=== PATIENT | female | born 1980 | race Caucasian/White ===

== ENCOUNTER 2017-07-13 00:40 | Outpatient (CLI) | payer OTHER ==
[2017-07-13] MEDS ORDERED: ACETAMINOPHEN 500 MG TAB PO (01:23)
[2017-07-13 01:41] LABS: ADD UMIC YES; UR AMORPHOUS CRYSTAL FEW /HPF (NONE SEEN); UR ASCORBIC ACID NEGATIVE (NEGATIVE); UR BACTERIA FEW /HPF (NONE SEEN); UR BILIRUBIN (Dip) NEGATIVE (NEGATIVE); UR BLOOD (Dip) 2+ mg/dL (NEGATIVE); UR CLARITY CLOUDY (CLEAR); UR COLOR YELLOW (YELLOW); UR GLUCOSE (Dip) NEGATIVE (NEGATIVE); UR KETONES (Dip) NEGATIVE (NEGATIVE); UR LEUKOCYTE ESTERASE (Dip) 2+ Leu/ul (NEGATIVE); UR NITRITE (Dip) NEGATIVE (NEGATIVE); UR RBC 4 /HPF (0-5); UR SPECIFIC GRAVITY (Dip) 1.006 (1.003-1.030); UR SQUAMOUS EPITHELIAL CELL MODERATE /HPF (FEW); UR TOTAL PROTEIN (Dip) NEGATIVE (NEGATIVE); UR UROBILINOGEN (Dip) NEGATIVE (NEGATIVE); UR WBC 8 /HPF (0-5)
[2017-07-13 02:17] LABS: ADD MAN DIFF? NO
[2017-07-13 02:27] LABS: WHITE BLOOD COUNT 14.1 10^3/ul (4.8-10.8)
[2017-07-13 02:27] LABS: BASOPHILS % 0.2 % (0.0-2.0); EOSINOPHILS # 0.2 10^3/ul (0.0-0.5); EOSINOPHILS % 1.6 % (0.0-7.0); HEMATOCRIT 33.3 % (37.0-47.0); HEMOGLOBIN 11.2 g/dl (12.0-16.0); LYMPHOCYTES # 2.3 10^3/ul (0.8-2.9); LYMPHOCYTES % 16.6 % (15.0-51.0); MEAN CORPUSCULAR HEMOGLOBIN 28.7 pg (29.0-33.0); MEAN CORPUSCULAR HGB CONC 33.6 g/dl (32.0-37.0); MEAN CORPUSCULAR VOLUME 85.4 fl (82.0-101.0); MEAN PLATELET VOLUME 9.3 fl (7.4-10.4); MONOCYTE # 1.3 10^3/ul (0.3-0.9); MONOCYTES % 9.1 % (0.0-11.0); NEUTROPHIL # 10.1 10^3/ul (1.6-7.5); NEUTROPHILS % 71.6 % (39.0-77.0); PLATELET COUNT 247 10^3/UL (140-415); RED CELL DISTRIBUTION WIDTH 15.4 % (11.5-14.5)
[2017-07-13 02:47] LABS: ALANINE AMINOTRANSFERASE 28 IU/L (13-69); ALBUMIN 3.3 g/dl (3.3-4.9); ALBUMIN/GLOBULIN RATIO 1.13; ALKALINE PHOSPHATASE 92 IU/L (42-121); ANION GAP 13 (8-16); ASPARTATE AMINO TRANSFERASE 14 IU/L (15-46); BILIRUBIN,INDIRECT 0.1 mg/dl (0-1.1); BILIRUBIN,TOTAL 0.1 mg/dl (0.2-1.3); BLOOD UREA NITROGEN 8 mg/dl (7-20); CALCIUM 9.3 mg/dl (8.4-10.2); CARBON DIOXIDE 24 mmol/L (21-31); CHLORIDE 107 mmol/L (97-110); CREATININE 0.64 mg/dl (0.44-1.00); GLUCOSE 92 mg/dl (70-220); POTASSIUM 3.7 mmol/L (3.5-5.1); SODIUM 140 mmol/L (135-144); TOTAL PROTEIN 6.2 g/dl (6.1-8.1); URIC ACID 4.2 mg/dl (3.1-7.9)
== END 2017-07-13 03:05 | disposition home or self-care (01) ==
LOC: OBT 00:40 → L-D 00:41 → OBT 03:05
DX: O26.893 Other specified pregnancy related conditions, third trimester (principal); Z3A.37 37 weeks gestation of pregnancy; R51 Headache
CPT/HCPCS: 76818; 80053; 81001; 84560; 85025; 96372

== ENCOUNTER 2017-08-01 05:18 | Inpatient (IN) | payer OTHER ==
[2017-08-01] MEDS ORDERED: IBUPROFEN 600 MG TAB PO (06:00)
[2017-08-01] MEDS ORDERED: BUTORPHANOL 2 MG INJ IV (06:00)
[2017-08-01] MEDS ORDERED: CARBOPROST 250 MCG INJ IM (06:00)
[2017-08-01] MEDS ORDERED: OXYTOCIN 30 UNITS/LR 500 ML IV (06:00)
[2017-08-01] MEDS: MINERAL OIL LIGHT 10 ML VIAL TOP (06:00)
[2017-08-01] MEDS ORDERED: LACTATED RINGER'S 1,000 ML IV (06:00)
[2017-08-01] MEDS ORDERED: MISOPROSTOL 200 MCG TAB PR (06:00)
[2017-08-01] MEDS ORDERED: LIDOCAINE 1% (MPF) 30 ML INJ INJ (06:00)
[2017-08-01] MEDS ORDERED: METHYLERGONOVINE 0.2 MG INJ IM (06:00)
[2017-08-01] MEDS: LACTATED RINGER'S 1,000 ML IV ×3 (08:29→17:44)
[2017-08-01 08:37] LABS: ADD MAN DIFF? NO
[2017-08-01 08:41] LABS: BASOPHILS % 0.4 % (0.0-2.0); EOSINOPHILS # 0.1 10^3/ul (0.0-0.5); EOSINOPHILS % 1.2 % (0.0-7.0); HEMATOCRIT 34.1 % (37.0-47.0); HEMOGLOBIN 11.7 g/dl (12.0-16.0); LYMPHOCYTES # 1.8 10^3/ul (0.8-2.9); LYMPHOCYTES % 16.3 % (15.0-51.0); MEAN CORPUSCULAR HGB CONC 34.3 g/dl (32.0-37.0); MEAN CORPUSCULAR VOLUME 84.4 fl (82.0-101.0); MEAN PLATELET VOLUME 9.5 fl (7.4-10.4); MONOCYTE # 0.9 10^3/ul (0.3-0.9); MONOCYTES % 7.9 % (0.0-11.0); NEUTROPHIL # 8.1 10^3/ul (1.6-7.5); NEUTROPHILS % 73.6 % (39.0-77.0); PLATELET COUNT 235 10^3/UL (140-415); RED BLOOD COUNT 4.04 10^6/ul (4.20-5.40); RED CELL DISTRIBUTION WIDTH 15.6 % (11.5-14.5)
[2017-08-01 09:12] LABS: INR 0.93; PARTIAL THROMBOPLASTIN TIME 24.3 Sec (25.0-35.0); PROTIME 12.5 Sec (11.9-14.9)
[2017-08-01 09:37] LABS: HEPATITIS B SURFACE ANTIGEN NEGATIVE (NEGATIVE)
[2017-08-01] MEDS: OXYTOCIN 30 UNITS/LR 500 ML IV ×2 (13:17→22:14)
[2017-08-01] MEDS ORDERED: FENTAnyl 2MCG/ML-ROPIV 0.2% 100 ML (15:34)
[2017-08-01 16:44] LABS: RAPID PLASMA REAGIN NONREACTIVE (NR)
[2017-08-01] MEDS ORDERED: DIPHENHYDRAMINE 50 MG INJ IV ×3 (17:00→20:30)
[2017-08-01] MEDS ORDERED: ONDANSETRON 4 MG INJ IV ×3 (17:00→20:30)
[2017-08-01] MEDS ORDERED: FENTAnyl 2MCG/ML-ROPIV 0.2% 100 ML BAG EPI (17:00)
[2017-08-01] MEDS ORDERED: NALOXONE (0.4 MG/ML) INJ IV ×2 (17:00→20:30)
[2017-08-01] MEDS: SOD CHLORIDE 0.9% 1,000 ML IV ×2 (17:34→19:05)
[2017-08-01] MEDS ORDERED: LIDOCAINE 1.5%/EPI MPF (SDV) 30 ML VIAL (19:30)
[2017-08-01] MEDS ORDERED: METOCLOPRAMIDE 10 MG INJ (19:30)
[2017-08-01] MEDS ORDERED: CEFAZOLIN 2 GM/50 ML (PMX) 50 ML IVPB (19:31)
[2017-08-01] MEDS ORDERED: PHENYLephrine (100 MCG/ML) 5ML SYG ×2 (19:31→19:56)
[2017-08-01] MEDS ORDERED: morphine SULFATE/PF (10 MG/10 ML) INJ (19:34)
[2017-08-01] MEDS ORDERED: EPHEDrine SULFATE 50 MG/5 ML SYG ×2 (20:13→20:54)
[2017-08-01] MEDS ORDERED: EPHEDrine SULFATE 50 MG/5 ML SYG IV (20:30)
[2017-08-01] MEDS ORDERED: morphine 2 MG INJ IV ×3 (20:30)
[2017-08-01] MEDS ORDERED: MEPERIDINE 25 MG INJ IV (20:30)
[2017-08-01] MEDS ORDERED: morphine (1 MG/ML) 10ML SYRINGE IV ×3 (20:30)
[2017-08-01] MEDS: KETOROLAC 30 MG INJ IV (22:05)
[2017-08-02] MEDS: OXYTOCIN 30 UNITS/LR 500 ML IV ×2 (00:10→05:19)
[2017-08-02] MEDS: LANOLIN 7 GM TUBE TOP (01:29)
[2017-08-02] MEDS ORDERED: MISOPROSTOL 200 MCG TAB PR (01:30)
[2017-08-02] MEDS ORDERED: ZOLPIDEM 5 MG TAB PO (01:30)
[2017-08-02] MEDS ORDERED: CARBOPROST 250 MCG INJ IM (01:30)
[2017-08-02] MEDS ORDERED: ONDANSETRON 4 MG INJ IV (01:30)
[2017-08-02] MEDS ORDERED: OXYTOCIN 30 UNITS/LR 500 ML IV (01:30)
[2017-08-02] MEDS ORDERED: DIPHENHYDRAMINE 50 MG INJ IV (01:30)
[2017-08-02] MEDS ORDERED: METHYLERGONOVINE 0.2 MG INJ IM (01:30)
[2017-08-02] MEDS: CEFAZOLIN 2 GM/50 ML (PMX) 50 ML IVPB ×3 (07:30→18:23)
[2017-08-02] MEDS: KETOROLAC 30 MG INJ IV ×3 (08:08→20:28)
[2017-08-02] MEDS: SENNA/DOCUSATE NA (8.6MG/50MG) TAB PO ×2 (08:53→23:00)
[2017-08-02 09:42] LABS: ADD MAN DIFF? NO
[2017-08-02 09:45] LABS: BASOPHIL # 0.1 10^3/ul (0.0-0.1); BASOPHILS % 0.3 % (0.0-2.0); EOSINOPHILS % 0.2 % (0.0-7.0); HEMATOCRIT 31.2 % (37.0-47.0); HEMOGLOBIN 10.8 g/dl (12.0-16.0); LYMPHOCYTES # 1.3 10^3/ul (0.8-2.9); MEAN CORPUSCULAR HEMOGLOBIN 29.3 pg (29.0-33.0); MEAN CORPUSCULAR HGB CONC 34.6 g/dl (32.0-37.0); MEAN CORPUSCULAR VOLUME 84.8 fl (82.0-101.0); MEAN PLATELET VOLUME 9.5 fl (7.4-10.4); MONOCYTE # 1.3 10^3/ul (0.3-0.9); MONOCYTES % 6.8 % (0.0-11.0); NEUTROPHIL # 15.8 10^3/ul (1.6-7.5); NEUTROPHILS % 85.2 % (39.0-77.0); PLATELET COUNT 205 10^3/UL (140-415); RED BLOOD COUNT 3.68 10^6/ul (4.20-5.40); RED CELL DISTRIBUTION WIDTH 15.4 % (11.5-14.5)
[2017-08-02 09:45] LABS: WHITE BLOOD COUNT 18.5 10^3/ul (4.8-10.8)
[2017-08-02] MEDS: LACTATED RINGER'S 1,000 ML IV ×3 (09:49→17:07)
[2017-08-02] MEDS ORDERED: OXYCODONE/ACETAMINOPHEN (5/325) TAB PO (20:30)
[2017-08-02] MEDS: IBUPROFEN 800 MG TAB PO (22:00)
[2017-08-03] MEDS: LACTATED RINGER'S 1,000 ML IV (01:07)
[2017-08-03] MEDS: LANOLIN 7 GM TUBE TOP ×2 (02:50→22:28)
[2017-08-03] MEDS: OXYCODONE/ACETAMINOPHEN (5/325) TAB PO (04:48)
[2017-08-03] MEDS: IBUPROFEN 800 MG TAB PO ×4 (05:34→22:13)
[2017-08-03] MEDS: SENNA/DOCUSATE NA (8.6MG/50MG) TAB PO ×2 (09:31→20:56)
[2017-08-03 09:37] LABS: ADD MAN DIFF? NO
[2017-08-03 09:46] LABS: BASOPHILS % 0.2 % (0.0-2.0); EOSINOPHILS # 0.2 10^3/ul (0.0-0.5); EOSINOPHILS % 1.1 % (0.0-7.0); HEMATOCRIT 31.5 % (37.0-47.0); HEMOGLOBIN 10.7 g/dl (12.0-16.0); LYMPHOCYTES # 2.1 10^3/ul (0.8-2.9); LYMPHOCYTES % 13.2 % (15.0-51.0); MEAN CORPUSCULAR VOLUME 85.4 fl (82.0-101.0); MEAN PLATELET VOLUME 9.4 fl (7.4-10.4); MONOCYTE # 1.2 10^3/ul (0.3-0.9); MONOCYTES % 7.5 % (0.0-11.0); NEUTROPHIL # 12.4 10^3/ul (1.6-7.5); NEUTROPHILS % 77.3 % (39.0-77.0); PLATELET COUNT 235 10^3/UL (140-415); RED BLOOD COUNT 3.69 10^6/ul (4.20-5.40); RED CELL DISTRIBUTION WIDTH 15.5 % (11.5-14.5)
[2017-08-03 09:46] LABS: WHITE BLOOD COUNT 16.1 10^3/ul (4.8-10.8)
[2017-08-04] MEDS: IBUPROFEN 800 MG TAB PO ×2 (06:37→13:09)
[2017-08-04] MEDS: SENNA/DOCUSATE NA (8.6MG/50MG) TAB PO (11:17)
[2017-08-04] MEDS: DIPHTH/TET/ACEL PERTUSS (ADULT) 0.5 ML VIAL IM* (17:00)
== END 2017-08-04 17:53 | disposition home or self-care (01) | DRG 775 ==
LOC: OBT 05:18 → PP1 08-02 00:53 → L-D 05:18 → OBT 05:48 → PP1 08-02 21:20 → L-D 05:48
PROVIDERS: Obstetrics & Gynecology
PROC: 10E0XZZ Delivery of Products of Conception, External Approach (ICD-10-PCS; principal; 2017-08-02)
PROC: 3E033VJ Introduction of Other Hormone into Peripheral Vein, Percutaneous Approach (ICD-10-PCS; 2017-08-02)
DX: O99.214 Obesity complicating childbirth (principal); E66.01 Morbid (severe) obesity due to excess calories; Z68.39 Body mass index [BMI] 39.0-39.9, adult; Z3A.39 39 weeks gestation of pregnancy; Z37.0 Single live birth
CPT/HCPCS: 62319; 85025; 85610; 85730; 86592; 86850; 86900; 86901; 87340; 94760; 99464